=== PATIENT | female | born 1990 | race Caucasian/White ===

== ENCOUNTER 2018-10-28 20:20 | Inpatient (IN) ==
[2018-10-28] MEDS ORDERED: OXYTOCIN 30 UNITS/500 ML BAG IV PRN ×2 (20:38→21:34)
[2018-10-28 21:02] LABS: Hematocrit (blood only) 34.5 % (37-47); Hemoglobin 11.9 g/dL (12.0-16.0); Mean Corpuscular Volume 88.5 fL (80-100); Mean Platelet Volume 10.1 fL (7.4-10.4); Platelet Count 246 K/uL (130-400); RDW Coefficient of Variation 13.7 % (11.5-14.5); RDW Standard Deviation 44.4 fL (36.4-46.3); White Blood Count 11.43 K/uL (4.8-10.8)
[2018-10-28 21:04] LABS: Mean Corpuscular Hgb Conc 34.5 g/dL (32-36)
--- NOTE | 2018-10-28 21:39 | History & Physical Report ---
Date of Service October 28, 2018 Assessment & Plan (1) Leakage, amniotic fluid: 28 yo at 40.1 wks with leaking Amniotic fluids, PROM, not in labor VSS Afebrile, no medical problems FHR reassuring, GBS negative Discussed IOL with pitocin with decreased risk of intraamniotic infection and accepted Plan admit, labs, pitocin per protocol Anticipate History of Present Illness Chief Complaint: Leaking fluids Primary Care Provider: NO PCP Patient is a 28 yo at 40.1 wks who started to feel leaking of clear fluids since 6:30 pm tonight It has been trickling and clear N VB/ Ctxs/ abd pain/ fever/ chills/ N&V +FM's Her has been uncomplicated GBS negative Allergies Allergy/AdvReac Type Severity Reaction Status Date / Time No Known Allergies Allergy Unverified 12/29/13 16:03 Home Medications Home Medications Medication Instructions Recorded Confirmed Type Multivit/Min/Iron/Fol Ac/Pren 1 tab PO DAILY #0 tab 12/29/13 10/28/18 History ( Vitamin) Patient History Medical History MRSA (methicillin resistant Staphylococcus aureus) in right arm negative cultures per patient in 2014 [place] teeth extracted Social History Preferred Language: Norwegian Communication Ability: Effective 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 Beliefs That Will Affect Care: None marital status: Single Current Living Situation: Family Other Information That Helps Us Care for You: No Feels Safe at Home: Yes Safety Concerns: Feels Safe At This Time Smoking Status: Never smoker Hx Alcohol Use: No Hx Substance Use: No OB History FT in 2013 [employer] History No h/o STD Review of Systems All systems reviewed & are unremarkable except as noted in HPI & below Physical Exam Constitutional: WD/WN, vitals as above well developed and well nourished Comfortable Genitourinary: VE: grossly ruptured Cervix 3/ 60%/ -2, vertex per her nurse, HEATHER Kent Results & Data Vital Signs (Past 12 Hours) Vital Signs Pulse Resp BP 10/28/18 20:53 18 10/28/18 20:46 101 H 129/91 10/28/18 20:29 93 H 135/91 Code Status & VTE Plan VTE Prophylaxis Plan VTE Prophylaxis will be ordered: No Monitoring External Monitor Reactive Tocodynamometer No ctxs
[2018-10-28] MEDS: LACTATED RINGER'S 1,000 ML IV PRN (22:07)
[2018-10-29] MEDS ORDERED: BUPIVACAINE 0.25% 30 ML VIAL ONE (01:44)
[2018-10-29] MEDS ORDERED: ePHEDrine sulfate 50 MG/ML AMP ONE (01:44)
[2018-10-29] MEDS ORDERED: fentaNYL citrate 100 MCG/2 ML VIAL ONE (01:45)
[2018-10-29] MEDS ORDERED: fentaNYL 2MCG/ML ROPIV 1.25MG/ML 100 ML BAG EPI ONE (01:45)
[2018-10-29] MEDS: LACTATED RINGER'S 1,000 ML IV PRN (02:14)
[2018-10-29] MEDS ORDERED: ePHEDrine sulfate 50 MG/ML AMP IV PRN (02:30)
[2018-10-29] MEDS ORDERED: NALBUPHINE HCL INJ 10 MG/ML AMP IV PRN (02:30)
[2018-10-29] MEDS ORDERED: NALOXONE HCL 1 MG in SODIUM CHLORIDE 0.9% 1000ML 1,000 ML IV PRN (02:30)
[2018-10-29] MEDS ORDERED: fentaNYL 2MCG/ML ROPIV 1.25MG/ML 100 ML BAG EPI PRN (02:30)
[2018-10-29] MEDS ORDERED: DiphenhydrAMINE HCL 50 MG/ML VIAL IV PRN (02:30)
[2018-10-29] MEDS ORDERED: NALOXONE HCL 0.4 MG/1 ML VIAL/CARP IV PRN (02:30)
--- NOTE | 2018-10-29 02:30 | Anesthesiology Consultation ---
Date of Service October 29, 2018 Assessment & Plan Chart Review Chart Review: Acceptable Risk for Surgery Consults Requested none History Height/Weight Height: 5 ft 3 in Weight: 71.8 kg Allergies Allergy/AdvReac Type Severity Reaction Status Date / Time No Known Allergies Allergy Unverified 12/29/13 16:03 Medications Home Medications Medication Instructions Recorded Confirmed Last Taken Multivit/Min/Iron/Fol Ac/Pren 1 tab PO DAILY #0 tab 12/29/13 10/28/18 10/28/18 09:00 ( Vitamin) Active Medications Generic Name Dose Route Start Last Admin Trade Name Freq PRN Reason Stop Dose Admin Lactated Ringer's 1,000 mls @ 125 mls/hr 10/28/18 20:38 10/29/18 02:14 Lr IV 10/30/18 20:37 125 mls/hr .Q8H PRN Administration L&D Protocol Protocol Oxytocin 30 units in 500 mls @ 3 mls/hr 10/28/18 21:34 10/29/18 01:35 Pitocin IV 10/30/18 21:33 0.18 units/hr .Q24H PRN 3 mls/hr Labor Induction/Augmentation Titration Protocol 0.18 UNITS/HR Past Medical History Medical History MRSA (methicillin resistant Staphylococcus aureus) in right arm negative cultures per patient in 2014 [place] teeth extracted Social History Smoking Status: Never smoker Hx Alcohol Use: No Hx Substance Use: No Physical Exam Vital Signs Last Vital Signs Temp 36.9 C 10/29/18 01:52 Pulse 100 H 10/29/18 02:28 Resp 18 10/28/18 20:53 BP 106/65 10/29/18 02:28 Pulse Ox 100 10/29/18 02:25 Testing Laboratory Results 10/28/18 20:53
[2018-10-29] MEDS ORDERED: BISACODYL 10 MG SUPP PR PRN (03:52)
[2018-10-29] MEDS ORDERED: BENZOCAINE 20% AER SPR 82.5 GM CAN EXT PRN (03:52)
[2018-10-29] MEDS ORDERED: OXYCODONE/ACETAMINOPHEN 5mg/325mg TAB PO PRN (03:52)
[2018-10-29] MEDS ORDERED: ACETAMINOPHEN 325 MG TAB PO PRN (03:52)
[2018-10-29] MEDS ORDERED: DIPHTHERIA/TETANUS/PERTUSSIS 0.5 ML SYR/VIAL IM ONE (03:52)
[2018-10-29] MEDS ORDERED: HYDROCORTISONE ACETATE 25 MG SUPP PR PRN (03:52)
[2018-10-29] MEDS ORDERED: OXYTOCIN 30 UNITS/500 ML BAG IV PRN (03:52)
[2018-10-29] MEDS ORDERED: SUPERCREAM 0.870% 15 GM JAR EXT PRN (03:52)
[2018-10-29] MEDS ORDERED: MEASLES, MUMPS & RUBELLA VIRUS VIAL SQ ONE (03:52)
[2018-10-29] MEDS ORDERED: LACTATED RINGER'S 1,000 ML IV SCH (04:00)
--- NOTE | 2018-10-29 06:45 | Anesthesia Procedure Note ---
Date of Service October 29, 2018 Anesthesia Post Epidural Note Vital Signs Vital Signs: Temp Pulse Resp BP Pulse Ox 36.9 C 166 H 18 122/58 L 100 10/29/18 01:52 10/29/18 05:48 10/28/18 20:53 10/29/18 05:48 10/29/18 03:45 Pain Intensity Abdomen: Pain Intensity: 1 Notes Mental Status: alert / awake / arousable Nausea / Vomiting: adequately controlled Pain: adequately controlled Airway Patency, RR, SpO2: stable & adequate BP & HR: stable & adequate Hydration State: stable & adequate Neuraxial Anesthesia: was administered and sensory block is resolving Anesthetic Complications: no major complications apparent and Pt Satisfied with anesthetic care Epidural: Removed without complications and With tip intact
[2018-10-29] MEDS: IBUPROFEN 600 MG TAB PO PRN ×3 (07:45→18:55)
[2018-10-29] MEDS ORDERED: PRENATAL VITAMIN 1 TAB PO SCH (08:00)
--- NOTE | 2018-10-29 09:01 | Delivery Summary ---
DATE OF OPERATION: 10/29/2018 TIME OF DELIVERY: 03:32 a.m. TIME OF DELIVERY OF PLACENTA: 03:47 a.m. DETAILS OF DELIVERY: The patient was found to be fully dilated and desired to push. She pushed for about 10 minutes and the perineum had tight hymenal ring band and muscles and the heart rate was having decelerations to 70s. After verbal consent was obtained, small right medial lateral episiotomy was opened, head was delivered right after, shoulders were delivered with minimal traction. Baby was handed to the mother where mouth and nose were suctioned. Cord was clamped x2 and cut. It was 3 vessels cord. Then, vagina and perineum were checked for lacerations. There was a second-degree small episio which was opened earlier, no other lacerations were found. It was repaired with 2-0 Vicryl in a running fashion, bringing the vaginal mucosa together, bulbocavernous muscles together and skin in a subcuticular fashion. Excellent hemostasis was achieved. Placenta was found to be in the vagina, delivered spontaneously as intact and complete. Uterus was explored, found to be empty. Lower segment was cleared of all clots and debris. Fundus was firm. EBL was 100 ml. Mom and baby tolerated the procedure well. Sponge, lap, needle count was correct x2. Baby was a viable male infant, Apgars 8/9. No complications happened and I was present during whole procedure. I attest to the content of the Intraoperative Record and any orders documented therein. Any exceptions are noted below. MTDD
[2018-10-29] MEDS: DOCUSATE SODIUM 100 MG CAP PO SCH ×2 (09:19→21:04)
[2018-10-29] MEDS: FERROUS SULFATE 325 MG TAB PO SCH (09:20)
[2018-10-30] MEDS: IBUPROFEN 600 MG TAB PO PRN ×2 (05:17→10:27)
[2018-10-30 06:53] LABS: Hematocrit (blood only) 33.4 % (37-47); Hemoglobin 11.2 g/dL (12.0-16.0); Mean Corpuscular Hgb Conc 33.5 g/dL (32-36); Mean Corpuscular Volume 89.5 fL (80-100); Mean Platelet Volume 10.5 fL (7.4-10.4); Platelet Count 240 K/uL (130-400); RDW Coefficient of Variation 13.9 % (11.5-14.5); RDW Standard Deviation 45.5 fL (36.4-46.3); Red Blood Count 3.73 M/uL (4.2-5.4); White Blood Count 14.14 K/uL (4.8-10.8)
--- NOTE | 2018-10-30 07:32 | Obstetrical Progress Note ---
Date of Service October 30, 2018 Subjective doing fine plans on discharge Physical Exam Constitutional: WD/WN, vitals as above comfortable Abdomen soft non- tender uterus firm no edema neg Farnaz's for discharge Results & Data Vital Signs (Past 12 Hours) Vital Signs Temp Pulse Resp BP 10/30/18 05:35 36.7 C 78 18 135/89 10/29/18 23:35 36.7 C 80 16 125/83 10/29/18 19:50 36.7 C 99 H 18 124/84 Laboratory Results Laboratory Results - last 48 hr 10/28/18 10/30/18 20:53 06:17 WBC 11.43 H 14.14 H RBC 3.90 L 3.73 L Hgb 11.9 L 11.2 L Hct 34.5 L 33.4 L MCV 88.5 89.5 MCH 30.5 30.0 MCHC 34.5 33.5 RDW Std Deviation 44.4 45.5 RDW Coeff of Leslye 13.7 13.9 Plt Count 246 240 MPV 10.1 10.5 H
[2018-10-30] MEDS: DOCUSATE SODIUM 100 MG CAP PO SCH (08:27)
[2018-10-30] MEDS: FERROUS SULFATE 325 MG TAB PO SCH (08:27)
[2018-10-30] MEDS ORDERED: BISACODYL 5 MG TABEC PO SCH (20:00)
== END 2018-10-30 11:20 | disposition home or self-care (01) | DRG 807 ==
LOC: OPB 20:20 → 4S1 20:26 → 4S2 10-29 07:35